=== PATIENT | male | born 1970 | race Caucasian/White ===

== ENCOUNTER 2016-09-11 07:10 | Day surgery (SDC) | payer OTHER ==
[~2016-09-11] VITALS: Ht 177.8 cm; Wt 100.0 kg
[~2016-09-11 07:10] MED LIST: FLUT9.9S NS
[2016-09-11 07:26] VITALS: BP 120/81; PULSE 64; RESP 16; O2SAT 98
[2016-09-11] MEDS ORDERED: fentaNYL-PF 50 mCg/mL 2 mL Inj IVPUSH PRN ×2 (07:50→14:45)
[2016-09-11] MEDS ORDERED: Sodium Chloride LOK Flush 10 mL Syringe IV PRN ×2 (07:50→14:45)
[2016-09-11] MEDS ORDERED: 0.9% Sodium Chloride 1,000 ML ONE (07:54)
[2016-09-11] MEDS: 0.9% Sodium Chloride 1,000 ML IV PRN ×3 (08:09→08:24)
[2016-09-11 08:30] VITALS: BP 121/82; PULSE 58; RESP 16; O2SAT 95
--- NOTE | 2016-09-11 08:33 | PCM.ENDCOL ---
Colonoscopy Date of Service: Sep 11, 2016 Physician Jeff Hines MD Indication for Procedure screening colon cancer and family history of colon cancer Post Procedure Dx & Findings: polyp hemorrhoids Procedure Colonoscopy prep adequate cecum 3 min withdrawal 13 min PROCEDURE IN DETAIL: After unremarkable rectal examination, the Olympus video colonoscope was inserted into patient's anal canal was advanced to cecum. Landmarks are identified including the ileocecal valve and appendiceal orifice. Scope was withdrawn systematically. The mucosa of the cecum, ascending, transverse, descending, sigmoid, rectal mucosa lined with whitish, pink, smooth, glistening, normal-appearing mucosa, normal fine branching, underlying vascularity, normal haustra. The patient tolerated procedure and was transported to observation area. In the ascending colon, there was a 1 mm polyp which was resected completely using cold forceps. In the transverse colon, there was 1 mm polyp which was resected using cold forceps. There was a 3 mm polyp which was resected completely using cold snare. In the descending colon, there was a 1 mm polyp was was resected completely using cold forcep. The transverse and the descending colon polyps were placed in 1 bottle labeled left colon. In the rectum retroflexion was done which showed hemorrhoids and anal canal was inspected carefully and the way out and hemorrhoids noted. Impression Polyp 4 status post complete removal Hemorrhoids Family history of colon cancer Recommendations Repeat colonoscopy 3 years. Presedation Assessment Risks and Benefits Informed consent was obtained from the patient after all risks and benefits including but not limited to drug reaction, infection, pain, bleeding, perforation, as well as alternatives were discussed. Patient monitoring Continuous pulse oximetry, cardiac monitoring, blood pressure monitoring, IV access, and oxygen at 2L per nasal cannula. Periprocedural Fentanyl: Fentanyl 75mcg Incrementally Midazolam: Midazolam 4mg Incrementally Complications There were no periprocedural complications identified. Post Procedure Plan Post Procedure Recommendations 1. Restrict activities today. 2. Resume normal activities in the morning. 3. Resume medications. 4. Patient informed of normal post procedure side effects as bloating, drowsiness, blood streaking in the stool. 5. average risk CRCS. If colon polyps come back as: -Hyperplastic- can repeat colonoscopy in 10 years -Tubular adenoma- repeat colonoscopy in 5 years -Tubulovillous/villous adenoma- repeat colonoscopy in 3 years -If any dysplasia- return to clinic as soon as possible 6. Please don't hesitate to call me with any questions. Jeff Hines MD Sep 11, 2016 08:32
[2016-09-11 08:40] VITALS: BP 111/71; PULSE 59; RESP 16; O2SAT 96
[2016-09-11] MEDS ORDERED: 0.9% Sodium Chloride 1,000 ML IV PRN (14:44)
--- NOTE | 2016-09-12 12:06 | PATH ---
SURGICAL PATHOLOGY Attending Physician:Jeff Hines M.D. CASE STATUS: Signed Out PATIENT NAME: HANS GUILLAUME PID: [id number] : 1970 DATE COLLECTED:09/11/2016 17:47 SPECIMEN: 1: Colon, Biopsy 2: Colon, Biopsy CLINICAL HISTORY: 1: ASCENDING COLON POLYP 2: LEFT COLON POLYPS FINAL DIAGNOSIS: 1. Ascending Colon Polyp: Tubular adenoma. 2. Left Colon Polyps: Tubular adenoma involving single biopsy fragment. Hyperplastic polyp involving multiple biopsy fragments. ICD10 D12.2 GROSS DESCRIPTION: The specimen is received in two formalin filled containers labeled with the patient's name. 1. The specimen is sublabeled "ascending colon polyp" and consists of a 0.4 x 0.3 x 0.2 CM portion of tissue which is entirely submitted in cassette 1A. 2. The specimen is sublabeled "left colon polyps" and consists of multiple portions of tissue which aggregate to 0.4 x 0.4 x 0.2 CM. The specimen is entirely submitted in cassette 2A. 09/11/2016 [facility] ICD-9 CODES: CPT CODES: 1: 64012 2: 62328 Electronically Signed Out Eddie Breen MD [facility] Pathology [facility] [address], [place] [address] Technical component performed at [facility], [address] [place] [address] [address], [place], [address]
== END 2016-09-11 23:59 | disposition home or self-care (01) ==
LOC: END 07:10
PROVIDERS: ATTEND Internal Medicine
DX: D12.1 Benign neoplasm of appendix (principal); D12.4 Benign neoplasm of descending colon; K63.5 Polyp of colon; K64.9 Unspecified hemorrhoids
CPT/HCPCS: 45380; 45385; 99153; G0500; J2250; J7030